=== PATIENT | male | born 1985 | race Caucasian/White ===

== ENCOUNTER 2024-06-28 11:57 | Emergency (ER) | payer SELFPAY ==
[2024-06-28 13:24] LABS: #Basophils 0.04 10x3/uL (0.0-0.2); %Basophils 0.5 % (0.0-1.0); %Eosinophils 1.3 % (0.0-10.0); %Lymphocytes 28.5 % (21.0-51.0); %Monocytes 6.4 % (0.0-10.0); Hematocrit 46.4 % (42.0-52.0); Mean Corpuscular HGB CONC 34.5 g/dL (32.0-36.0); Mean Corpuscular Hemoglobin 32.5 pg (27.0-31.0); Mean Corpuscular Volume 94.3 fL (78.0-98.0); Mean Platelet Volume 9.9 fL (7.4-10.4); Platelet Count 239 10x3/uL (130-400); RBC Distribution Width 13.1 % (11.5-14.5); Red Blood Cell (RBC) Count 4.92 mill/uL (4.70-6.10)
[2024-06-28 13:49] LABS: ALT (SGPT) 149 U/L (8-55); AST (SGOT) 102 U/L (5-34); Albumin 4.3 g/dL (3.5-5.0); Alkaline Phosphatase 73 U/L (40-110); Anion Gap 18 mmol/L (10-20); BUN (Urea Nitrogen) 9 mg/dL (8.9-20.6); Bilirubin, Total 1.4 mg/dL (0.2-1.2); Calc. Creatinine Clearance 0 mL/min (70-130); Carbon Dioxide 20 mmol/L (22-29); Chloride 107 mmol/L (98-107); Estimated GFR 116; Globulin 3.3 g/dL (2.4-3.5); Glucose 85 mg/dL (70-105); Lipase 173 U/L (8-78); Potassium 3.6 mmol/L (3.5-5.1); Protein, Total 7.6 g/dL (6.0-8.3); Sodium 141 mmol/L (136-145)
[2024-06-28 14:01] LABS: Troponin I Less than 0.010 ng/mL (< 0.028)
== END 2024-06-28 15:21 | disposition home or self-care (01) ==
LOC: ERS 11:57 → EEVIPCON 11:57 → ERS 15:21
DX: K85.90 Acute pancreatitis without necrosis or infection, unspecified (principal); R07.2 Precordial pain
CPT/HCPCS: 36415; 71045; 80053; 83690; 84484; 85025; 93005